=== PATIENT | male | born 1980 | race Caucasian/White ===

== ENCOUNTER 2020-12-31 10:58 | Emergency (ER) | payer MEDICAID ==
[~2020-12-31] VITALS: Ht 170.2 cm; Wt 57.6 kg
[2020-12-31 11:03] VITALS: BP 148/87
--- NOTE | 2020-12-31 11:07 | NUR ---
PT TO LOBBY.
--- NOTE | 2020-12-31 13:36 | NUR ---
Pt ambulated to bed 11.
--- NOTE | 2020-12-31 13:40 | NUR ---
40/M c/o left eye pain x2 days after working on a door at home. Pt reports redness and feels like something is in his eye. Pt denies any changes in vision at this time.
[2020-12-31] MEDS ORDERED: TETRACAINE HCL/PF 0.5% OPTH 4 ML BTL ONE (14:02)
[2020-12-31] MEDS ORDERED: TETRACAINE HCL/PF 0.5% OPTH 4 ML BTL OP ONE (14:05)
--- NOTE | 2020-12-31 14:15 | NUR ---
PT EYE IRRIGATED WITH WATERFOR APPROXIMATELY 8 MINUTES, PT STATED HE FELT BETTER AFTER IRRIGATION
[2020-12-31] MEDS ORDERED: IBUP-2213 PO (14:30)
[2020-12-31] MEDS ORDERED: ACET-8386 PO (14:30)
[2020-12-31] MEDS ORDERED: ERYT5OIN58 OP (14:30)
[2020-12-31 14:44] VITALS: BP 137/90
--- NOTE | 2020-12-31 14:45 | NUR ---
Patient discharged with v/s stable. Written and verbal after care instructions given and explained. Patient alert, oriented and verbalized understanding of instructions. Ambulatory with steady gait. All questions addressed prior to discharge. ID band removed. Patient advised to follow up with PMD. Rx of norco, erythromycin, ibuprofen given. Patient educated on indication of medication including possible reaction and side effects. Opportunity to ask questions provided and answered.
== END 2020-12-31 14:45 | disposition home or self-care (01) ==
LOC: MED 10:58
DX: T15.92XA Foreign body on external eye, part unspecified, left eye, initial encounter (principal); Z90.49 Acquired absence of other specified parts of digestive tract; X58.XXXA Exposure to other specified factors, initial encounter; Y93.89 Activity, other specified; Y92.89 Other specified places as the place of occurrence of the external cause; Y99.8 Other external cause status
CPT/HCPCS: 65205; 99284

== ENCOUNTER 2024-02-02 07:57 | Emergency (ER) | payer MEDICAID ==
[~2024-02-02] VITALS: Ht 152.4 cm; Wt 63.5 kg
[~2024-02-02 07:57] MED LIST: ACET-8905 PO; ERYT5OIN58 OP; IBUP-2213 PO
[2024-02-02 08:12] VITALS: BP 123/85; PULSE 86; RESP 16; TEMP 98.4; O2SAT 99
[2024-02-02] MEDS ORDERED: MELO-176 PO (08:49)
[2024-02-02] MEDS ORDERED: ONDA-188 SL (08:49)
[2024-02-02] MEDS ORDERED: AMOX1TAB8 PO (08:49)
[2024-02-02] MEDS: predniSONE 20 MG TAB PO ONE (09:21)
[2024-02-02] MEDS: KETOROLAC 60 MG/2 ML VIAL IM ONE (09:25)
[2024-02-02 10:11] VITALS: BP 123/85; PULSE 86; RESP 16; TEMP 98.4; O2SAT 99
== END 2024-02-02 10:11 | disposition home or self-care (01) ==
LOC: MED 07:57
DX: R51.9 Headache, unspecified (principal); J32.9 Chronic sinusitis, unspecified; F17.200 Nicotine dependence, unspecified, uncomplicated; Z79.899 Other long term (current) drug therapy
CPT/HCPCS: 96372; 99283; J1885; J7512